=== PATIENT | female | born 1945 | race African-American/Black ===

== ENCOUNTER 2017-05-16 23:47 | Inpatient (IN) | payer MEDICARE, OTHER ==
[~2017-05-16] VITALS: Ht 180.3 cm; Wt 103.0 kg
[~2017-05-16 23:47] MED LIST: BENZ1TAB7 PO; HALO2ORA PO; PANT40TA4 PO; VALP250S PO
[2017-05-16] MEDS ORDERED: CEPH500C2 PO (23:58)
[2017-05-16] MEDS ORDERED: OMEP40CA37 PO (23:58)
[2017-05-16] MEDS ORDERED: ARIP15TA3 PO (23:58)
[2017-05-16] MEDS ORDERED: DIVA500T54 PO (23:58)
[2017-05-17 00:30] VITALS: BP 166/71
--- NOTE | 2017-05-17 00:48 | NUR ---
Pt. admitted to GPS, under care of Dr. Santoyo Belongs List completed
[2017-05-17] MEDS ORDERED: MAGNESIUM HYDROXIDE 30 ML LIQUID UDC PO PRN (01:15)
[2017-05-17] MEDS ORDERED: ACETAMINOPHEN 325 MG TABLET PO PRN (01:15)
[2017-05-17] MEDS ORDERED: TEMAZEPAM 7.5 MG CAPSULE PO PRN (01:15)
--- NOTE | 2017-05-17 02:20 | NUR ---
received to care, at 0030, from the emergency room, on a 72 hour hold, for danger to self/gravely disabled, a transfer from [facility]. according to the chart, she has a history of schizophrenia, and lives at home with her sister/nephew, who are her caregivers. she had been refusing her medications for the past 2 months, but for the past 5 days, has been having command hallucinations, telling her to severely limit her food intake. her family called 911, when she became unmanageable, at home. when evaluated at the other hospital, she told the crisis team that she wanted to end her life, by "jumping off a bridge". upon arrival on the unit, she appeared distracted by internal stimuli. appearing disheveled, with poor hygiene. she refused any exam, or questions, stating that "i am talking to god. don't bother me" after continuing to refuse, staff assisted her to bed at 0100, and she promptly went to sleep. as of 219, she continues to sleep. no distress noted. will continue to monitor closely.
--- NOTE | 2017-05-17 02:20 | NUR ---
addendum/pt attempted to ambulate, but had very unsteady gait. initially placed in carmen chair for safety, then assited to bed with alarm on.
--- NOTE | 2017-05-17 06:30 | NUR ---
slept 4.5 hours, total. assisted with am care, and shower. currently back in bed, asleep. no distress noted.
[2017-05-17 07:30] VITALS: BP 131/82
[2017-05-17] MEDS ORDERED: DIVA250T4 PO (07:41)
[2017-05-17] MEDS ORDERED: ARIP15TA3 PO (07:42)
[2017-05-17] MEDS: BENZTROPINE MESYLATE 1 MG TABLET PO SCH ×2 (10:15→14:49)
[2017-05-17] MEDS: DIVALPROEX 250 MG TABLET.DR PO SCH ×2 (10:15→14:49)
[2017-05-17] MEDS: ARIPIPRAZOLE 2 MG TABLET PO SCH ×2 (10:30→14:48)
[2017-05-17] MEDS: CLONAZEPAM 0.5 MG TABLET PO PRN (15:08)
[2017-05-17 15:59] VITALS: BP 117/64
--- NOTE | 2017-05-17 17:30 | NUR ---
Gps/Housefellow-Ambulates w/ FWW, able to take routine am meds.at a later time after refusing them at the scheduled time . Speech incoherent, unclear . Refused to stay in the TV room , came out of her room for about 15 minutes and went right back to bed. Speech unclear/incoherent speech .
[2017-05-17] MEDS: CEPHALEXIN MONOHYDRATE 500 MG CAPSULE PO SCH (21:00)
[2017-05-17 21:16] VITALS: BP 136/90
--- NOTE | 2017-05-17 22:00 | NUR ---
received to care, lying in bed, intermittently talking to self, but does not answer appropriately, when engaged. bedtime medications were offered, but she initially pretended not to hear this business writer. when reproached later, she said she would take her antibiotic, but when it was brought to her, she refused to take, or acknowledge that it was being offered. staff attempted to explain the importance of treating her urinary tract infection, but she just shook her head no. as of 0, she remains asleep. no distress noted. will continue to monitor closely.
[2017-05-18] MEDS: CEPHALEXIN MONOHYDRATE 500 MG CAPSULE PO SCH ×3 (02:26→20:12)
--- NOTE | 2017-05-18 02:26 | NUR ---
pt is now awake, and coughing. PO keflex was given, along with a glass of water. pt now states she is hungry; currently eating a snack. will continue to monitor closely.
--- NOTE | 2017-05-18 06:07 | NUR ---
pt is now awake, and c/o nausea. 100 ML of lemon [place] soda was given. will continue to monitor closely.
--- NOTE | 2017-05-18 06:08 | NUR ---
refused to drink the soda.
[2017-05-18] MEDS: PANTOPRAZOLE SODIUM 40 MG TABLET.DR PO SCH ×2 (06:10→15:16)
--- NOTE | 2017-05-18 06:45 | NUR ---
slept 5.5 hours, total. states she still feels nausea, but is less than before. assisted with diaper change, and am care. no distress noted.
[2017-05-18 07:30] VITALS: BP 133/82
[2017-05-18] MEDS: ARIPIPRAZOLE 2 MG TABLET PO SCH (09:00)
[2017-05-18] MEDS: BENZTROPINE MESYLATE 1 MG TABLET PO SCH ×2 (09:00→16:23)
[2017-05-18] MEDS: DIVALPROEX 250 MG TABLET.DR PO SCH ×2 (09:00→16:23)
[2017-05-18] MEDS: MAG HYDROX/AL HYDROX/SIMETH 30 ML LIQUID UDC PO PRN (13:58)
--- NOTE | 2017-05-18 14:57 | NUR ---
Gps/Camera Prototyping Engineer- Complained of GERD, increased salivation noted, encouraged to stay sitting upright , not to lay down . Patient requesting medication for GERD, refused to take early this am, spoked to her sister claimed she take omniprazole 5 mg daily
[2017-05-18 15:00] VITALS: BP 134/71
--- NOTE | 2017-05-18 15:45 | NUR ---
Initial DC Plan: Patient currently lives at home with her sister Nidia [[address] [place] [address]. [place] [id number];[phone]]. SW will follow up with MD, patient, and patient's family to discuss most appropriate discharge plans. SW will form a safe and proper discharge.
[2017-05-18 20:18] VITALS: BP 109/65
[2017-05-18] MEDS ORDERED: MEGESTROL ACETATE 400 MG/10 ML LIQUID UDC PO SCH (21:00)
[2017-05-19] MEDS: ONDANSETRON HCL 4 MG TABLET PO PRN ×3 (02:39→16:56)
--- NOTE | 2017-05-19 02:43 | NUR ---
GPS: PATIENT VOMITED [place] [employer] EMESIS. Dr vines called.received order zofran 4 mg po q 6hrs prn for n/v. zofran 4 mg po given as md ordered. keep patient HOB 30 degree FOR COMFORT. CHARGE NURSE MADE AWARE. CONTINUE MONITORING FOR SAFETY.
[2017-05-19] MEDS ORDERED: ONDANSETRON HCL 4 MG TABLET ONE (02:54)
--- NOTE | 2017-05-19 03:43 | NUR ---
GPS: NO MORE C/O N/V. PRN ZOFRAN 4 MG PO EFFECTIVE FOR N/V.
[2017-05-19] MEDS: PANTOPRAZOLE SODIUM 40 MG TABLET.DR PO SCH (06:11)
--- NOTE | 2017-05-19 06:33 | NUR ---
GPS: REMAIN CALM AND COOPERATIVE. COMPLIANT WITH AM PO MEDS. SLEPT 4 HRS THROUGH THE NIGHT. SITTING UP IN CHAIR IN HER ROOM. CONTINUE MONITORING FOR PAIN AND N/V.
[2017-05-19 07:30] VITALS: BP 122/80
[2017-05-19] MEDS: CEPHALEXIN MONOHYDRATE 500 MG CAPSULE PO SCH ×2 (09:31→20:25)
[2017-05-19] MEDS: ARIPIPRAZOLE 2 MG TABLET PO SCH (09:31)
[2017-05-19] MEDS: DIVALPROEX 250 MG TABLET.DR PO SCH ×2 (09:31→16:53)
[2017-05-19] MEDS: BENZTROPINE MESYLATE 1 MG TABLET PO SCH ×2 (09:32→16:53)
[2017-05-19 15:00] VITALS: BP 98/50
[2017-05-19 20:12] VITALS: BP 111/66
[2017-05-20] MEDS: PANTOPRAZOLE SODIUM 40 MG TABLET.DR PO SCH (06:11)
--- NOTE | 2017-05-20 06:32 | NUR ---
GPS: REMAIN CALM AND COOPERATIVE WITH MEDICATION AND CARE. NO C/O N/V THROUGH THE NIGHT. SLEPT 7 HRS THROUGH THE NIGHT. PATIENT AMBULATE TO BATH ROOM WITH FWW. CONTINUE PLAN OF CARE.
[2017-05-20 07:30] VITALS: BP 114/74
[2017-05-20] MEDS: ONDANSETRON HCL 4 MG TABLET PO PRN ×2 (07:59→16:51)
[2017-05-20] MEDS: ARIPIPRAZOLE 2 MG TABLET PO SCH (08:20)
[2017-05-20] MEDS: BENZTROPINE MESYLATE 1 MG TABLET PO SCH ×2 (08:20→16:51)
[2017-05-20] MEDS: DIVALPROEX 250 MG TABLET.DR PO SCH ×2 (08:20→16:51)
[2017-05-20] MEDS: CEPHALEXIN MONOHYDRATE 500 MG CAPSULE PO SCH ×3 (08:20→21:14)
[2017-05-20 16:42] VITALS: BP 105/54
[2017-05-21] MEDS: ONDANSETRON HCL 4 MG TABLET PO PRN (06:22)
[2017-05-21] MEDS: PANTOPRAZOLE SODIUM 40 MG TABLET.DR PO SCH (06:22)
[2017-05-21 07:30] VITALS: BP 121/70
[2017-05-21] MEDS: BENZTROPINE MESYLATE 1 MG TABLET PO SCH ×2 (08:48→16:17)
[2017-05-21] MEDS: CEPHALEXIN MONOHYDRATE 500 MG CAPSULE PO SCH ×2 (08:48→20:08)
[2017-05-21] MEDS: ARIPIPRAZOLE 2 MG TABLET PO SCH (08:49)
[2017-05-21] MEDS: DIVALPROEX 250 MG TABLET.DR PO SCH ×2 (08:49→16:17)
--- NOTE | 2017-05-21 11:48 | NUR ---
Firearms Reporting: FLORENTINO submitted Mental Health Report to [facility] on 05/21.
[2017-05-21] MEDS: ARIPIPRAZOLE 5 MG TABLET PO SCH (16:17)
[2017-05-21 16:59] VITALS: BP 109/51
[2017-05-21] MEDS ORDERED: ARIPIPRAZOLE 2 MG TABLET PO SCH ×2 (17:00)
[2017-05-22] MEDS: PANTOPRAZOLE SODIUM 40 MG TABLET.DR PO SCH (06:15)
[2017-05-22 07:06] LABS: BASOPHILS % (AUTO) 0.8 % (0.0-2.0); EOSINOPHILS # (AUTO) 0.1 K/uL (0.0-0.7); EOSINOPHILS % (AUTO) 1.1 % (0.0-7.0); HEMATOCRIT 38.8 % (31.2-41.9); HEMOGLOBIN 12.8 g/dL (10.9-14.3); LYMPHOCYTES % (AUTO) 39.5 % (20.5-51.5); MEAN CORPUSCULAR HEMOGLOBIN 26.8 uug (24.7-32.8); MEAN CORPUSCULAR HGB CONC 33 g/dL (32.3-35.6); MEAN CORPUSCULAR VOLUME 81.7 fL (75.5-95.3); MONOCYTES # (AUTO) 0.6 K/uL (2.0-10.0); MONOCYTES % (AUTO) 11.7 % (0.0-11.0); NEUTROPHILS # (AUTO) 2.4 K/uL (1.8-8.9); NEUTROPHILS % (AUTO) 46.9 % (38.5-71.5); PLATELET COUNT (AUTO) 185 K/uL (179-408); RED BLOOD CELL COUNT(AUTO) 4.76 MIL/uL (3.63-4.92); WHITE BLOOD COUNT (AUTO) 5.1 K/uL (3.8-11.8)
[2017-05-22 07:27] LABS: CARBON DIOXIDE 28 mmol/L (21-32); CHLORIDE 103 mmol/L (98-107); CHOLESTEROL 179 mg/dL (<200); CREATININE 1.1 mg/dL (0.6-1.3); GLUCOSE 91 mg/dL (74-106); HDL CHOLESTEROL 91 mg/dL (40-60); POTASSIUM 4.1 mmol/L (3.5-5.1); TRIGLYCERIDES 46 MG/DL (30-150); UREA NITROGEN, BLOOD 12 mg/dL (7-18)
[2017-05-22 07:30] VITALS: BP 116/81
[2017-05-22] MEDS: ARIPIPRAZOLE 5 MG TABLET PO SCH ×2 (08:36→16:49)
[2017-05-22] MEDS: BENZTROPINE MESYLATE 1 MG TABLET PO SCH ×2 (08:36→16:49)
[2017-05-22] MEDS: DIVALPROEX 250 MG TABLET.DR PO SCH ×2 (08:36→16:49)
[2017-05-22] MEDS: CEPHALEXIN MONOHYDRATE 500 MG CAPSULE PO SCH ×2 (08:36→20:43)
[2017-05-22] MEDS: CLONAZEPAM 0.5 MG TABLET PO PRN (12:25)
[2017-05-22 16:51] VITALS: BP 92/97
[2017-05-23] MEDS: PANTOPRAZOLE SODIUM 40 MG TABLET.DR PO SCH (06:38)
--- NOTE | 2017-05-23 07:01 | NUR ---
PATIENT SLEPT FOR APPROX 7 HRS THROUGH THE NIGHT. NO BEHAVIOR PROBLEMS NOTED AT THIS TIME, MEDICATION COMPLIANT.
[2017-05-23 08:00] VITALS: BP 138/94
[2017-05-23] MEDS: CEPHALEXIN MONOHYDRATE 500 MG CAPSULE PO SCH ×2 (10:31→20:14)
[2017-05-23] MEDS: BENZTROPINE MESYLATE 1 MG TABLET PO SCH ×2 (10:31→17:43)
[2017-05-23] MEDS: DIVALPROEX 250 MG TABLET.DR PO SCH ×3 (10:31→17:45)
[2017-05-23] MEDS: ARIPIPRAZOLE 5 MG TABLET PO SCH ×2 (10:32→17:43)
[2017-05-23] MEDS: ONDANSETRON HCL 4 MG TABLET PO PRN ×2 (14:42→21:06)
[2017-05-23 16:00] VITALS: BP 123/77
[2017-05-23 21:35] VITALS: BP 138/58
--- NOTE | 2017-05-23 22:12 | NUR ---
RECEIVED PATIENT IN THE DAY ROOM. SHE IS A/O X 1 IN NO ACUTE DISTRESS. PATIENT ABLE TO AMBULATE WITH A WALKER IN A SLOW BUT STEADY GAIT. SHE IS MEDICATION COMPLIANT AT THIS TIME. PT NOTED WITH FLIGHT OF IDEAS. SHE ALSO C/O N/V X1. ZOFRAN 4MG PO PRN FOR N/V WAS GIVEN AT 2103. WILL MONITOR FOR EFFICACY.
[2017-05-23] MEDS: MAG HYDROX/AL HYDROX/SIMETH 30 ML LIQUID UDC PO PRN (22:23)
--- NOTE | 2017-05-23 22:30 | NUR ---
PATIENT DENIES EMESIS; HOWEVER, CONTINUE C/O NAUSEA. MYLANTA WAS GIVEN FOR UPSET STOMACH/NAUSEA. WILL CONTINUE TO MONITOR
[2017-05-24] MEDS: PANTOPRAZOLE SODIUM 40 MG TABLET.DR PO SCH (06:09)
[2017-05-24] MEDS: MAG HYDROX/AL HYDROX/SIMETH 30 ML LIQUID UDC PO PRN (06:09)
--- NOTE | 2017-05-24 06:36 | NUR ---
PATIENT SLEPT FOR APPROX 5.00 HRS THROUGH THE NIGHT. SHE CONTINUE FEELING MILD NAUSEA WITHOUT EMESIS. MYLANTA 30ML PO PRN WAS GIVEN FOR UPSET STOMACH, SHE REFUSED ZOFRAN 4MG PO PRN FOR N/V. PATIENT HAD A SHOWER THIS MORNING, NO BEHAVIOR PROBLEMS NOTED OR REPORTED DURING THE SHIFT, HOWEVER SHE IS NOTED CONFUSED, FIGHT OF IDEAS AND WISHING TO GO HOME. WILL CONTINUE TO MONITOR
[2017-05-24 07:30] VITALS: BP 112/60
--- NOTE | 2017-05-24 08:31 | NUR ---
DC Note: The patient will be discharged home [[address] [place] [address]; ] via private transportation. SW spoke with patient's sister Nidia Fraser who stated she will filler picker patient between 12pm and 1pm. Patient is aware and agreeable to discharge plans. Patient will follow-up with her psychiatrist Dr. Liz Maldonado from the [facility] and her sustainability project coordinator Dr. Bautista Mir . Patient was provided with additional outpatient mental health resources to [facility] , [facility] , and the National Suicide Prevention Lifeline .
[2017-05-24] MEDS: DIVALPROEX 250 MG TABLET.DR PO SCH ×2 (08:47→12:34)
[2017-05-24] MEDS: BENZTROPINE MESYLATE 1 MG TABLET PO SCH (08:47)
[2017-05-24] MEDS: CEPHALEXIN MONOHYDRATE 500 MG CAPSULE PO SCH (08:47)
[2017-05-24] MEDS: ARIPIPRAZOLE 5 MG TABLET PO SCH (08:48)
[2017-05-24] MEDS: ONDANSETRON HCL 4 MG TABLET PO PRN (10:31)
--- NOTE | 2017-05-24 10:38 | NUR ---
Gps/Quality Intern- Discharge planning in progress, reviewed medications, diet, prescriptions verbalized understanding . [facility] ([phone].Patient has own omiprazole 40 mg. cap. at home per patient. Patient's sister Ora will be transporting patient to home
--- NOTE | 2017-05-24 12:38 | NUR ---
Gps/Amada Jacob(patient sister) in to brass pickler patient, all belongings given back to patient, reviewed medications, diet,safety reviewed and emphasized , both verbalized understanding. Discharged to home via private car, with no new complaints noted.
== END 2017-05-24 12:47 | disposition home or self-care (01) | DRG 885 ==
LOC: ER 23:52 → GPS 05-17 00:05
PROVIDERS: ADMIT Psychiatry & Neurology Psychiatry; ATTEND Internal Medicine
DX: F25.9 Schizoaffective disorder, unspecified (principal); F23 Brief psychotic disorder; N39.0 Urinary tract infection, site not specified; K21.9 Gastro-esophageal reflux disease without esophagitis; Z79.899 Other long term (current) drug therapy
CPT/HCPCS: 36415; 71010; 80164; 85025; 93005; A4663; J3490; Q0162